=== PATIENT | male | born 1965 | race Caucasian/White ===

== ENCOUNTER 2017-05-03 10:49 | Emergency (ER) | payer OTHER ==
[2017-05-03 10:56] VITALS: TEMP 97.9
--- NOTE | 2017-05-03 11:04 | EDPHY ---
H & P Stated Complaint: pt dx dvt post knee surgery a few weeks ago/now with sob Time Seen by Provider: 05/03/17 11:03 HPI/ROS: CHIEF COMPLAINT: Dyspnea HISTORY OF PRESENT ILLNESS: The patient presents to the ED for evaluation of mild dyspnea. The patient is currently recovering from a fairly serious left knee injury resulting in a external fixator being placed several weeks ago. The patient was diagnosed with a DVT in his left calf and has been on Xarelto for the past 12 days. The patient has been compliant with this medication. The patient denies pleuritic chest pain. The patient denies any fever, cough or congestion. He denies any acute numbness or weakness. The patient recently has been decreasing his narcotic usage. He is currently using 30 mg of oxycodone a day. He was using 60 mg a day 2 days ago. REVIEW OF SYSTEMS: A comprehensive 10 point review of systems is otherwise negative aside from elements mentioned in the history of present illness. Source: Patient Exam Limitations: No limitations - Personal History Current Tetanus/Diphtheria Vaccine: Yes Tetanus Vaccine Date: 08/24/2013 - Medical/Surgical History Hx Asthma: No Hx Chronic Respiratory Disease: No Hx Diabetes: No Hx Cardiac Disease: No Hx Renal Disease: No Hx Cirrhosis: No Hx Alcoholism: No Hx HIV/AIDS: No Hx Splenectomy or Spleen Trauma: No Other PMH: ORTHO/l knee surgery/dvt - Social History Smoking Status: Never smoked - Physical Exam Exam: General Appearance: Alert, no distress Eyes: Pupils equal and round no pallor or injection ENT, Mouth: Mucous membranes moist Respiratory: There are no retractions, lungs are clear to auscultation Cardiovascular: Regular rate and rhythm Gastrointestinal: Abdomen is soft and nontender, no masses, bowel sounds normal Neurological: A&O, normal motor function, normal sensory exam, normal cranial nerves Skin: Warm and dry, no rashes Musculoskeletal: Neck is supple nontender Extremities: External fixator applied to left leg, 2+ dorsalis pedis posterior tibial pulse noted, surgical incisions clean dry and intact Constitutional: Initial Vital Signs Temperature (C) 36.6 C 05/03/17 10:53 Heart Rate 70 05/03/17 10:53 Respiratory Rate 18 05/03/17 10:53 Blood Pressure 163/114 H 05/03/17 10:53 O2 Sat (%) 98 05/03/17 10:53 O2 Delivery Mode Room Air Allergies/Adverse Reactions: No Known Allergies Allergy (Verified 05/03/17 10:49) Home Medications: Medication Instructions Recorded Lamictal 09/11/10 SYNTHROID 100 mcg 09/11/10 Xarelto 10mg (*) 05/03/17 Medical Decision Making - Diagnostics Imaging Results: Imaging Impressions Chest/Thorax CTA 05/03/17 11:34 Impression: 1. No evidence of pulmonary embolic disease. 2. See above report for additional findings. Results called and discussed with Bill Looney M.D. on 05/03/2017 at 13:18 ED Course/Re-evaluation: The patient is hemodynamically stable. He presents to the ED with mild vague dyspnea for the past day. The patient is noted to be hemodynamically stable. I did explain to the patient that he is currently on Xarelto and even in the event he has a small subsegmental blood clot his treatment would likely be unchanged. The patient and his family would like to have a CT scan of the chest to evaluate for the possibility of more significant thromboembolic disease. The patient had an IV established. He had a normal i-STAT creatinine. The patient was taken for CT scan of the chest which demonstrates no evidence of a pulmonary embolism. I re-evaluated the patient at 1:20 p.m.. He has been informed of the workup. I think it is certainly possible he was experiencing some mild anxiety or symptoms surrounding his decreasing narcotic use. At this point time the patient is encouraged to continue his regular medications and anticoagulant therapy. He is given customary aftercare instructions and return precautions. Differential Diagnosis: Differential diagnosis considered includes pulmonary embolism, anxiety reaction , pneumonia, pneumothorax, hypoxemia - Data Points Laboratory Results: 05/03/17 11:23 POC Hgb 13.9 gm/dL gm/dL (13.7-17.5) POC Hct 41 % % (40-51) POC Sodium 143 mEq/L mEq/L (134-144) POC Potassium 4.1 mEq/L mEq/L (3.3-5.0) POC Chloride 105 mEq/L mEq/L (97-110) POC BUN 20 mg/dL mg/dL (7-23) POC Creatinine 1.1 mg/dL mg/dL (0.7-1.3) POC Glucose 107 mg/dL H mg/dL (70-100) Point of Care Test Results: 05/03/17 11:23 POC Sodium 143 POC Potassium 4.1 POC Chloride 105 POC BUN 20 POC Creatinine 1.1 POC Glucose 107 H Departure - Departure Disposition: Home, Routine, Self-Care Clinical Impression: Dyspnea, Knee injury Condition: Good Instructions: Dyspnea (ED) Additional Instructions: 1. Please continue your medications as prescribed. 2. Your CT scan demonstrates no evidence of a blood clot or other pulmonary abnormality. 3. Please follow-up with your primary care provider as scheduled. Referrals: Shoaib Thacker MD [Primary Care Provider] - As per Instructions
[2017-05-03] MEDS ORDERED: IOPAMIDOL (ISOVUE 370) 100 ML BTL IV ONE (11:38)
[2017-05-03 13:15] VITALS: RESP 16; O2SAT 94
[2017-05-03 13:37] VITALS: BP 121/84; PULSE 84
== END 2017-05-03 13:34 | disposition home or self-care (01) ==
DX: S89.92XA Unspecified injury of left lower leg, initial encounter (principal); R06.00 Dyspnea, unspecified; X58.XXXA Exposure to other specified factors, initial encounter
CPT/HCPCS: 82947-QW; Q9967